=== PATIENT | male | born 1965 | race Caucasian/White ===

== ENCOUNTER → 2017-04-10 | Emergency (ER) | payer OTHER ==
[~2017-04-10] VITALS: Ht 185.4 cm; Wt 154.2 kg
[~2017-04-10] MED LIST: ADULT ASPIRIN81 MG; DEXILANT30 MG; DIOVAN160 M1; TOPROL XL100 M1; ULTRACET PO
== END | disposition home or self-care (01) ==
LOC: ER 13:57
DX: M54.16 Radiculopathy, lumbar region (principal); M54.5 Low back pain

== ENCOUNTER 2017-10-30 18:24 | Emergency (ER) | payer OTHER ==
[~2017-10-30] VITALS: Ht 185.4 cm; Wt 161.0 kg
== END 2017-10-31 00:19 | disposition home or self-care (01) ==
LOC: ER 18:24
DX: S40.011A Contusion of right shoulder, initial encounter (principal); S30.0XXA Contusion of lower back and pelvis, initial encounter; S00.83XA Contusion of other part of head, initial encounter; W18.39XA Other fall on same level, initial encounter; Y93.89 Activity, other specified; Y92.098 Other place in other non-institutional residence as the place of occurrence of the external cause; Y99.8 Other external cause status

== ENCOUNTER 2018-03-10 14:31 | Emergency (ER) | payer OTHER ==
[~2018-03-10] VITALS: Ht 185.4 cm; Wt 161.0 kg
[2018-03-10] MEDS ORDERED: COZAAR50 MG (14:45)
== END 2018-03-10 17:22 | disposition home or self-care (01) ==
LOC: ER 14:31
DX: J11.1 Influenza due to unidentified influenza virus with other respiratory manifestations (principal); J06.9 Acute upper respiratory infection, unspecified

== ENCOUNTER 2019-10-05 17:03 | Emergency (ER) | payer OTHER ==
[~2019-10-05] VITALS: Ht 185.4 cm; Wt 156.9 kg
[~2019-10-05 17:03] MED LIST changes: +COZAAR50 MG
[2019-10-05] MEDS ORDERED: JANUMET XR 1001 EACH (17:31)
[2019-10-05] MEDS ORDERED: PEPCID AC20 MG (17:32)
[2019-10-05] MEDS ORDERED: NEXIUM40 M1 (17:32)
== END 2019-10-05 21:34 | disposition home or self-care (01) ==
LOC: ER 17:03
DX: K52.89 Other specified noninfective gastroenteritis and colitis (principal)

== ENCOUNTER 2020-10-12 13:40 | Emergency (ER) | payer OTHER ==
[~2020-10-12] VITALS: Ht 185.4 cm; Wt 154.2 kg
[~2020-10-12 13:40] MED LIST changes: +JANUMET XR 1001 EACH; +NEXIUM40 M1; +PEPCID AC20 MG
[2020-10-12] MEDS ORDERED: ANALPRAM HC 2.530 GM RECTAL (20:40)
== END 2020-10-12 20:51 | disposition home or self-care (01) ==
LOC: ER 13:40
DX: R10.32 Left lower quadrant pain (principal); K62.5 Hemorrhage of anus and rectum

== ENCOUNTER 2020-12-24 09:05 | Outpatient (CLI) | payer OTHER ==
[~2020-12-24 09:05] MED LIST changes: +ANALPRAM HC 2.530 GM RECTAL
== END 2020-12-24 09:19 | disposition home or self-care (01) ==
LOC: RX STUDY 09:05
PROVIDERS: ATTEND Surgery
DX: R13.19 Other dysphagia (principal); K92.2 Gastrointestinal hemorrhage, unspecified; Z86.010 Personal history of colon polyps

== ENCOUNTER 2020-12-31 09:32 | Day surgery (SDC) | payer OTHER | END 2020-12-31 14:20 | disposition home or self-care (01) | LOC: AMB-ENDOS 09:32 | PROVIDERS: ATTEND Surgery | DX: D12.0 Benign neoplasm of cecum (principal); D12.4 Benign neoplasm of descending colon; D12.5 Benign neoplasm of sigmoid colon; D13.0 Benign neoplasm of esophagus; D13.1 Benign neoplasm of stomach; D13.2 Benign neoplasm of duodenum; Z20.822 Contact with and (suspected) exposure to COVID-19 ==

== ENCOUNTER 2021-03-08 17:50 | Emergency (ER) | payer OTHER ==
[~2021-03-08] VITALS: Ht 180.3 cm; Wt 157.9 kg
[2021-03-08] MEDS ORDERED: FARXIGA5 MG PO (18:48)
== END 2021-03-08 21:47 | disposition home or self-care (01) ==
LOC: ER 17:50
DX: E11.649 Type 2 diabetes mellitus with hypoglycemia without coma (principal); T38.3X5A Adverse effect of insulin and oral hypoglycemic [antidiabetic] drugs, initial encounter; Y92.89 Other specified places as the place of occurrence of the external cause; R42 Dizziness and giddiness; Z79.4 Long term (current) use of insulin; I10 Essential (primary) hypertension

== ENCOUNTER 2023-04-02 12:48 | Emergency (ER) | payer OTHER ==
[~2023-04-02] VITALS: Ht 182.9 cm; Wt 141.1 kg
[~2023-04-02 12:48] MED LIST changes: +FARXIGA5 MG PO
[2023-04-02] MEDS ORDERED: DIOVAN160 M1 PO (14:45)
[2023-04-02 18:18] LABS: HEMATOCRIT 40.7 % (39.0-48.0); HEMOGLOBIN 14.4 g/dL (13-16.00); MEAN CELL VOLUME 88.7 fL (80.0-100.00); MEAN CORPUSCULAR HEMOGLOBIN 31.5 pg (27.00-32.0); MEAN CORPUSCULAR HGB CONC 35.5 g/dl (32.0-36.0); PLATELET COUNT 235 K/uL (150-450); RED BLOOD COUNT 4.58 M/uL (4.00-6.00); RED CELL DISTRIBUTION WIDTH 12.8 % (11.5-14.5)
[2023-04-02 18:48] LABS: ALBUMIN 3.6 gm/dL (3.4-5.0); BILIRUBIN TOTAL 0.66 mg/dL (0.3-1.2); CALCIUM 8.8 mg/dL (8.5-10.1); CREATININE SERUM 0.86 mg/dL (0.70-1.30); GFR 91.34; GLOBULINA 4.4 G/DL (2.4-3.5); POTASSIUM 3.78 mEq/L (3.5-5.1)
[2023-04-02 20:52] LABS: PH,URINE 5.5 (5.0-8.0); URINE APPEARANCE Clear; URINE BILIRRUBIN Negative (NEGATIVE); URINE BLOOD Negative; URINE COLOR Yellow; URINE LEUKOCYTE Negative; URINE NITRATE Negative; URINE PROTEIN Negative (NEGATIVE); URINE UROBILINOGEN 0.2 E.U./dl
[2023-04-02 20:53] LABS: URINE BACTERIA 11.3 uL (0.0-1933); URINE WBC 15.7 uL (0.0-23.2)
[2023-04-02 20:56] LABS: URINE EPITHELIAL CELLS 1.3 uL (0.0-38.8); URINE GLUCOSE 100 MG/DL (NEGATIVE); URINE RBC 0.4 uL (0.0-20.8)
== END 2023-04-02 22:12 | disposition home or self-care (01) ==
LOC: ER 12:49
PROVIDERS: General Practice
DX: M54.9 Dorsalgia, unspecified (principal); Z88.8 Allergy status to other drugs, medicaments and biological substances

== ENCOUNTER 2024-01-16 13:05 | Emergency (ER) | payer OTHER ==
[~2024-01-16] VITALS: Ht 185.4 cm; Wt 137.4 kg
[~2024-01-16 13:05] MED LIST changes: +DIOVAN160 M1 PO
[2024-01-16] MEDS ORDERED: TAMS0.4C (13:24)
[2024-01-16 13:27] VITALS: BP 99/67; O2SAT 96
[2024-01-16] MEDS ORDERED: 0.9 % SODIUM CHLORIDE 500 ML IV ONE (15:00)
[2024-01-16] MEDS ORDERED: FAMOTIDINE/PF 20 MG/2 ML VIAL IV ONE (15:15)
[2024-01-16 15:46] LABS: HEMATOCRIT 43.5 % (39.0-48.0); HEMOGLOBIN 15.4 g/dL (13-16.00); MEAN CELL VOLUME 88.2 fL (80.0-100.00); MEAN CORPUSCULAR HEMOGLOBIN 31.1 pg (27.00-32.0); MEAN CORPUSCULAR HGB CONC 35.3 g/dl (32.0-36.0); PLATELET COUNT 221 K/uL (150-450); RED BLOOD COUNT 4.94 M/uL (4.00-6.00); RED CELL DISTRIBUTION WIDTH 12.9 % (11.5-14.5)
[2024-01-16 16:12] LABS: ALBUMIN 3.9 gm/dL (3.4-5.0); BILIRUBIN TOTAL 0.8 mg/dL (0.3-1.2); CALCIUM 9.3 mg/dL (8.5-10.1); CREATININE SERUM 0.98 mg/dL (0.70-1.30); GFR 78.28; GLOBULINA 4.9 G/DL (2.4-3.5); POTASSIUM 4.27 mEq/L (3.5-5.1); PROSTATIC SPECIFIC ANTIGEN 1.1 NG/ML (0.010-4.00); TOTAL PROTEIN 8.8 gm/dL (6.4-8.2)
[2024-01-16 16:39] LABS: PH,URINE 5.5 (5.0-8.0); URINE APPEARANCE Clear; URINE BILIRRUBIN Negative (NEGATIVE); URINE BLOOD Negative; URINE COLOR Dark Yellow; URINE GLUCOSE Negative (NEGATIVE); URINE KETONE Trace (NEGATIVE); URINE LEUKOCYTE Small; URINE NITRATE Negative; URINE PROTEIN 30 (NEGATIVE)
[2024-01-16 16:42] LABS: URINE BACTERIA 138.5 uL (0.0-1933); URINE EPITHELIAL CELLS 16.8 uL (0.0-38.8); URINE RBC 2.9 uL (0.0-20.8); URINE WBC 228.6 uL (0.0-23.2)
[2024-01-16 17:05] LABS: URINE CAST 0.76 uL (0.0-1.40)
[2024-01-16 17:06] LABS: URINE CRYSTALS FEW /HPF
[2024-01-16 17:07] LABS: URINE MUCUS MODERATE
[2024-01-16] MEDS ORDERED: CIPROFLOXACIN IN 5 % DEXTROSE 400 MG/200 ML PIGGYBAG IV ONE (17:45)
== END 2024-01-16 19:29 ==
LOC: ER 13:06
PROVIDERS: Nurse Practitioner Family
DX: N39.0 Urinary tract infection, site not specified (principal); B95.2 Enterococcus as the cause of diseases classified elsewhere; K57.30 Diverticulosis of large intestine without perforation or abscess without bleeding; K42.9 Umbilical hernia without obstruction or gangrene; K40.20 Bilateral inguinal hernia, without obstruction or gangrene, not specified as recurrent; E11.9 Type 2 diabetes mellitus without complications; Z79.84 Long term (current) use of oral hypoglycemic drugs; I10 Essential (primary) hypertension; Z88.8 Allergy status to other drugs, medicaments and biological substances; Z87.09 Personal history of other diseases of the respiratory system; Z20.822 Contact with and (suspected) exposure to COVID-19

== ENCOUNTER 2024-03-31 15:21 | Emergency (ER) | payer OTHER ==
[~2024-03-31] VITALS: Ht 182.9 cm; Wt 137.4 kg
[~2024-03-31 15:21] MED LIST changes: +TAMS0.4C
[2024-03-31] MEDS ORDERED: TAMS0.4C PO (15:42)
[2024-03-31] MEDS ORDERED: METHYLPREDNISOLONE SOD SUCC 125 MG VIAL ONE (16:41)
[2024-03-31] MEDS ORDERED: LEVALBUTEROL HCL 0.63 MG/3 ML SOLUTION IH SCH (16:45)
[2024-03-31] MEDS ORDERED: METHYLPREDNISOLONE SOD SUCC 125 MG VIAL IV ONE (16:45)
[2024-03-31] MEDS ORDERED: LEVALBUTEROL HCL 0.63 MG/3 ML SOLUTION IH ONE (17:37)
[2024-03-31 17:44] LABS: HEMATOCRIT 41.1 % (39.0-48.0); HEMOGLOBIN 14.3 g/dL (13-16.00); MEAN CELL VOLUME 88.7 fL (80.0-100.00); MEAN CORPUSCULAR HEMOGLOBIN 30.8 pg (27.00-32.0); MEAN CORPUSCULAR HGB CONC 34.8 g/dl (32.0-36.0); PLATELET COUNT 168 K/uL (150-450); RED BLOOD COUNT 4.64 M/uL (4.00-6.00)
[2024-03-31 17:57] LABS: ABG PH 7.477 (7.35-7.45); ABG PO2 71.3 mmHg (80-100); ABG pCO2 31.2 mmHg (35-45); BASE EXCESS 0 mmol/l; BICARBONATE 22.6 mmol/l (23-25); SaO2 95.3 %; Tco2 23.5 mmol/l; allen test SATISFACTORY; puncture site RADIAL RIGHT
[2024-03-31 17:58] LABS: o2 21 %
[2024-03-31] MEDS ORDERED: CEFTRIAXONE SODIUM 2,000 MG VIAL IV ONE (19:00)
[2024-03-31] MEDS ORDERED: CEFTRIAXONE SODIUM 2,000 MG VIAL ONE (19:01)
== END 2024-03-31 19:43 | disposition home or self-care (01) ==
LOC: ER 15:21
PROVIDERS: Emergency Medicine
DX: J22 Unspecified acute lower respiratory infection (principal); J44.1 Chronic obstructive pulmonary disease with (acute) exacerbation; J45.909 Unspecified asthma, uncomplicated; I10 Essential (primary) hypertension; Z20.822 Contact with and (suspected) exposure to COVID-19

== ENCOUNTER 2024-04-02 12:42 | Inpatient (IN) | payer OTHER ==
[~2024-04-02] VITALS: Ht 182.9 cm; Wt 136.1 kg
[~2024-04-02 12:42] MED LIST changes: +TAMS0.4C PO
--- NOTE | 2024-04-02 14:10 | NUR ---
PACIENTE ALERTA Y ORIENTADO X 3, ACOMPANADO DE FAMILIAR. REFIERE DESDE EL RHINA TOS, CONGESTION Y SECRESIONES TEODORA QUE LE DIFICULTAN RESPIRAR. PACIENTE CON REFERIDO DE DR THEODORE POR POSIBLE BRONQUITIS.
[2024-04-02] MEDS ORDERED: LEVOFLOXACIN500 MG PO (14:16)
[2024-04-02] MEDS ORDERED: PROAIR RESPICL90 MCG (14:17)
[2024-04-02] MEDS ORDERED: LEVALBUTEROL HCL 1.25 MG/3 ML SOLUTION IH STA (15:07)
[2024-04-02] MEDS ORDERED: MAGNESIUM SULFATE IN WATER 4 GM/100 ML PIGGYBACK IV STA (15:08)
[2024-04-02] MEDS ORDERED: HYDROCODONE/CHLORPHEN P-STIREX 5 ML ML PO STA (15:08)
[2024-04-02] MEDS ORDERED: METHYLPREDNISOLONE SOD SUCC 125 MG VIAL IV STA (15:08)
[2024-04-02] MEDS ORDERED: IPRATROPIUM BROMIDE 0.5 MG/2.5 ML AMPUL.NEB IH STA (15:12)
--- NOTE | 2024-04-02 15:37 | NUR ---
PTE ALERTA Y ORIENTADO X3, RN ASHRAF ORIENTA SOBRE TX MEDICO Y REFIERE ACEPTAR. CANALIZA Y COELCTA MUESTRAS DE LAB BAJO MEDIDAS ASEPTICAS. ADMINISTRA MEDS JENARO ORDEN MEDICA. SE NOTIFICAN ABG A .
[2024-04-02] MEDS ORDERED: METHYLPREDNISOLONE SOD SUCC 125 MG VIAL ONE (15:39)
[2024-04-02] MEDS ORDERED: BUDESONIDE 0.5 MG/2 ML AMPUL.NEB IH STA (15:53)
[2024-04-02] MEDS ORDERED: LEVALBUTEROL HCL 1.25 MG/3 ML SOLUTION IH ONE (16:01)
[2024-04-02 16:02] LABS: HEMATOCRIT 43.9 % (39.0-48.0); HEMOGLOBIN 15.4 g/dL (13-16.00); MEAN CELL VOLUME 88.8 fL (80.0-100.00); MEAN CORPUSCULAR HGB CONC 34.9 g/dl (32.0-36.0); PLATELET COUNT 219 K/uL (150-450); RED BLOOD COUNT 4.95 M/uL (4.00-6.00)
[2024-04-02] MEDS ORDERED: IPRATROPIUM BROMIDE 0.5 MG/2.5 ML AMPUL.NEB IH ONE (16:02)
[2024-04-02] MEDS ORDERED: BUDESONIDE 0.5 MG/2 ML AMPUL.NEB IH ONE (16:02)
[2024-04-02 16:25] LABS: CALCIUM 9.6 mg/dL (8.5-10.1); CREATININE SERUM 1.15 mg/dL (0.70-1.30); GFR 65.09; POTASSIUM 4.09 mEq/L (3.5-5.1)
[2024-04-02] MEDS ORDERED: LEVALBUTEROL HCL 1.25 MG/3 ML SOLUTION IH SCH (17:08)
[2024-04-02] MEDS ORDERED: AZITHROMYCIN 500 MG in DEXTROSE 5 % IN WATER 250 ML IV SCH (17:09)
[2024-04-02] MEDS ORDERED: CEFTRIAXONE SODIUM 2,000 MG in 0.9 % SODIUM CHLORIDE 100 ML IV SCH (17:10)
[2024-04-02] MEDS ORDERED: ACETAMINOPHEN 500 MG GEL..CAP PO PRN (17:15)
[2024-04-02] MEDS ORDERED: DEXTROSE 50 % IN WATER 0.5 G/ML DISP.SYRIN IV PRN (17:30)
[2024-04-02] MEDS ORDERED: INSULIN LISPRO 1,000 UNIT/10 ML UNITS SUBCUTANEO PRN (17:30)
[2024-04-02] MEDS ORDERED: AMIODARONE HCL 50 MG/ML AMPUL IV ONE ×2 (17:42→18:00)
[2024-04-02] MEDS ORDERED: METHYLPREDNISOLONE SOD SUCC 40 MG VIAL IV SCH ×2 (18:00→21:00)
[2024-04-02] MEDS ORDERED: APIXABAN 5 MG TABLET PO SCH (18:08)
[2024-04-02] MEDS ORDERED: AZITHROMYCIN 500 MG VIAL IV ONE (18:26)
[2024-04-02] MEDS ORDERED: CEFTRIAXONE SODIUM 2,000 MG VIAL ONE (18:26)
[2024-04-02 18:27] LABS: URINE APPEARANCE Clear; URINE BILIRRUBIN Negative (NEGATIVE); URINE BLOOD Negative; URINE COLOR Yellow; URINE GLUCOSE Negative (NEGATIVE); URINE KETONE Trace (NEGATIVE); URINE LEUKOCYTE Negative; URINE NITRATE Negative; URINE PROTEIN Trace (NEGATIVE); URINE UROBILINOGEN 0.2 E.U./dl
[2024-04-02 18:27] LABS: D DIMER 0.36 MG/L; PARTIAL THROMBOPLASTIN TIME 26.7 SECONDS (22.0-34.0)
[2024-04-02] MEDS ORDERED: 0.9 % SODIUM CHLORIDE 1,000 ML IV SCH (18:30)
[2024-04-02 18:31] LABS: URINE BACTERIA 26.9 uL (0.0-1933); URINE EPITHELIAL CELLS 2.5 uL (0.0-38.8); URINE WBC 6.6 uL (0.0-23.2)
[2024-04-02 18:34] LABS: URINE CAST 0.29 uL (0.0-1.40); URINE RBC 1.1 uL (0.0-20.8)
[2024-04-02 19:00] VITALS: BP 117/78; O2SAT 98
[2024-04-02 19:11] LABS: INR 1.12; PROTHROMBIN TIME 12.1 SECONDS (9.0-11.5)
[2024-04-02 19:19] LABS: ABG PH 7.517 (7.35-7.45); ABG pCO2 24.8 mmHg (35-45); BASE EXCESS -1.4 mmol/l; BICARBONATE 19.6 mmol/l (23-25); SaO2 96.9 %; Tco2 20.4 mmol/l; allen test SATISFACTORY; o2 21 %; puncture site RADIAL LEFT
[2024-04-02] MEDS ORDERED: ACETAMINOPHEN 500 MG GEL..CAP PO ONE (19:21)
[2024-04-02 20:03] VITALS: BP 113/75; O2SAT 99
[2024-04-02 21:00] VITALS: BP 100/76; O2SAT 98
[2024-04-02] MEDS ORDERED: GUAIFEN/DEXTROMETHORPHAN/PE 10 ML BLIST.PACK PO SCH (21:00)
[2024-04-02] MEDS ORDERED: IPRATROPIUM BROMIDE 0.5 MG/2.5 ML AMPUL.NEB IH SCH (21:00)
[2024-04-02] MEDS ORDERED: METHYLPREDNISOLONE SOD SUCC 40 MG VIAL ONE ×2 (21:48→23:45)
[2024-04-02] MEDS ORDERED: GUAIFEN/DEXTROMETHORPHAN/PE 10 ML BLIST.PACK PO ONE ×2 (21:48→23:45)
[2024-04-02] MEDS ORDERED: WATER FOR INJ.,BACTERIOSTATIC 30 ML VIAL IJ ONE (21:54)
[2024-04-02 22:00] VITALS: BP 114/82; O2SAT 99
[2024-04-02 22:36] LABS: ABG PH 7.503 (7.35-7.45)
[2024-04-02 22:37] LABS: ABG PO2 221.6 mmHg (80-100); ABG pCO2 25.3 mmHg (35-45); BASE EXCESS -1.9 mmol/l; BICARBONATE 19.4 mmol/l (23-25); SaO2 99.8 %; Tco2 20.2 mmol/l; allen test SATISFACTORY; o2 35 %; puncture site RADIAL LEFT
[2024-04-02 23:00] VITALS: BP 108/80; O2SAT 98
[2024-04-02] MEDS ORDERED: AMIODARONE IN DEXTROSE,ISO-OSM 360 MG/200 ML IV.SOLN IV ONE (23:46)
[2024-04-03] VITALS (17 sets, daily range): BP systolic 90–118; BP diastolic 67–96; O2SAT 95–99
[2024-04-03] MEDS ORDERED: INSULIN LISPRO 1,000 UNIT/10 ML UNITS SUBCUTANEO ONE ×6 (01:52→21:45)
[2024-04-03] MEDS ORDERED: IPRATROPIUM BROMIDE 0.5 MG/2.5 ML AMPUL.NEB IH ONE ×3 (01:59→10:38)
[2024-04-03] MEDS ORDERED: LEVALBUTEROL HCL 0.63 MG/3 ML SOLUTION IH ONE (02:00)
[2024-04-03 03:47] LABS: ABG PH 7.405 (7.35-7.45); ABG PO2 120.3 mmHg (80-100); ABG pCO2 35.2 mmHg (35-45); BASE EXCESS -2.5 mmol/l; BICARBONATE 21.6 mmol/l (23-25); SaO2 98.6 %; Tco2 22.6 mmol/l; allen test SATISFACTORY; o2 35 %; puncture site RADIAL RIGHT
[2024-04-03 07:18] LABS: CALCIUM 8.8 mg/dL (8.5-10.1); CREATININE SERUM 0.95 mg/dL (0.70-1.30); GFR 81.14; POTASSIUM 4.43 mEq/L (3.5-5.1); T4 TOTAL 11.53 UG/DL (4.5-12.1); TSH 0.535 uIU/mL (0.358-3.74)
[2024-04-03] MEDS ORDERED: INSULIN LISPRO 1,000 UNIT/10 ML UNITS SUBCUTANEO SCH (08:00)
[2024-04-03] MEDS ORDERED: DILTIAZEM HCL 30 MG TABLET PO SCH ×2 (09:00→17:00)
[2024-04-03] MEDS ORDERED: FAMOTIDINE/PF 20 MG in 0.9 % SODIUM CHLORIDE 8 ML IV PUSH SCH (09:00)
[2024-04-03] MEDS ORDERED: INSULIN GLARGINE,HUM.REC.ANLOG 1,000 UNITS/10 ML UNITS SUBCUTANEO SCH ×2 (09:00→17:01)
[2024-04-03] MEDS ORDERED: INSULIN GLARGINE,HUM.REC.ANLOG 1,000 UNITS/10 ML UNITS SUBCUTANEO ONE ×2 (10:56→16:30)
[2024-04-03] MEDS ORDERED: FUROsemide 20 MG/2 ML VIAL IV SCH (11:23)
[2024-04-03] MEDS ORDERED: FUROsemide 20 MG/2 ML VIAL ONE (11:32)
[2024-04-03] MEDS ORDERED: METHYLPREDNISOLONE SOD SUCC 40 MG VIAL IV SCH (13:00)
[2024-04-03] MEDS ORDERED: INSULIN REGULAR, HUMAN 1,000 UNIT/10 ML UNITS IV STA (14:51)
[2024-04-03] MEDS ORDERED: INSULIN LISPRO 1,000 UNIT/10 ML UNITS SUBCUTANEO STA (14:52)
[2024-04-03 15:05] LABS: MYCOPLASMA PNEUMONIAE IGM REACTIVE (NO REACTIVE)
[2024-04-03] MEDS ORDERED: INSULIN REGULAR, HUMAN 1,000 UNIT/10 ML UNITS ONE (16:28)
[2024-04-03] MEDS ORDERED: INSULIN REGULAR, HUMAN 1,000 UNIT/10 ML UNITS IV ONE (17:00)
[2024-04-03] MEDS ORDERED: METHYLPREDNISOLONE SOD SUCC 40 MG VIAL ONE (21:34)
[2024-04-03] MEDS ORDERED: DIGOXIN 0.25 MG/ML AMPUL IV SCH (21:53)
[2024-04-03] MEDS ORDERED: DIGOXIN 0.125 MG TABLET PO ONE (22:20)
[2024-04-04] VITALS (15 sets, daily range): BP systolic 99–140; BP diastolic 68–99; O2SAT 97–100
[2024-04-04] MEDS ORDERED: FAMOTIDINE/PF 20 MG/2 ML VIAL IV PUSH STA (01:16)
[2024-04-04] MEDS ORDERED: FAMOTIDINE/PF 20 MG/2 ML VIAL IV PUSH SCH (01:17)
[2024-04-04] MEDS ORDERED: HYOSCYAMINE SULFATE 0.125 MG TAB.SUBL ONE (06:42)
[2024-04-04 07:04] LABS: HEMATOCRIT 40.6 % (39.0-48.0); HEMOGLOBIN 14.5 g/dL (13-16.00); MEAN CELL VOLUME 87.1 fL (80.0-100.00); MEAN CORPUSCULAR HGB CONC 35.6 g/dl (32.0-36.0); PLATELET COUNT 226 K/uL (150-450); RED BLOOD COUNT 4.66 M/uL (4.00-6.00); RED CELL DISTRIBUTION WIDTH 13.1 % (11.5-14.5)
[2024-04-04 07:11] LABS: ALBUMIN 3.2 gm/dL (3.4-5.0); BILIRUBIN TOTAL 0.46 mg/dL (0.3-1.2); CALCIUM 8.7 mg/dL (8.5-10.1); CREATININE SERUM 0.75 mg/dL (0.70-1.30); GFR 106.59; GLOBULINA 4.5 G/DL (2.4-3.5); MAGNESIUM 2.2 mg/dL (1.8-2.4); PHOSPHOROUS 4.3 mg/dL (2.5-4.9); POTASSIUM 4.07 mEq/L (3.5-5.1); TOTAL PROTEIN 7.7 gm/dL (6.4-8.2)
[2024-04-04 07:12] LABS: C-REACTIVE PROTEIN 1.93 MG/DL (0.00-0.29)
[2024-04-04] MEDS ORDERED: INSULIN LISPRO 1,000 UNIT/10 ML UNITS SUBCUTANEO SCH (08:00)
[2024-04-04] MEDS ORDERED: IPRATROPIUM BROMIDE 0.5 MG/2.5 ML AMPUL.NEB IH ONE (08:40)
[2024-04-04] MEDS ORDERED: INSULIN GLARGINE,HUM.REC.ANLOG 1,000 UNITS/10 ML UNITS SUBCUTANEO SCH (09:00)
[2024-04-04] MEDS ORDERED: INSULIN LISPRO 1,000 UNIT/10 ML UNITS SUBCUTANEO ONE ×3 (09:16→23:34)
[2024-04-04] MEDS ORDERED: FAMOTIDINE/PF 20 MG/2 ML VIAL ONE (09:17)
[2024-04-04] MEDS ORDERED: METHYLPREDNISOLONE SOD SUCC 40 MG VIAL ONE ×2 (12:17→19:36)
[2024-04-04] MEDS ORDERED: GUAIFEN/DEXTROMETHORPHAN/PE 10 ML BLIST.PACK PO ONE (12:17)
[2024-04-04] MEDS ORDERED: WATER FOR INJ.,BACTERIOSTATIC 30 ML VIAL IJ ONE (12:18)
[2024-04-04] MEDS ORDERED: METRONIDAZOLE/SODIUM CHLORIDE 100 ML IV SCH (17:00)
[2024-04-04] MEDS ORDERED: LACTOBACILLUS ACIDOPHILUS 1 CAP CAP PO SCH (17:52)
[2024-04-04] MEDS ORDERED: LACTOBACILLUS ACIDOPHILUS 1 CAP CAP PO ONE (19:36)
[2024-04-04] MEDS ORDERED: DIGOXIN 0.125 MG TABLET PO SCH (21:56)
[2024-04-04] MEDS ORDERED: METRONIDAZOLE/SODIUM CHLORIDE 500 MG/100 ML PIGGYBACK IV ONE (23:34)
[2024-04-04] MEDS ORDERED: DILTIAZEM HCL 30 MG TABLET PO ONE (23:34)
[2024-04-05] VITALS (18 sets, daily range): BP systolic 105–144; BP diastolic 68–94; O2SAT 94–100
[2024-04-05] MEDS ORDERED: GUAIFEN/DEXTROMETHORPHAN/PE 10 ML BLIST.PACK PO ONE (00:13)
[2024-04-05] MEDS ORDERED: DILTIAZEM HCL 30 MG TABLET PO SCH (01:00)
[2024-04-05] MEDS ORDERED: WATER FOR INJ.,BACTERIOSTATIC 30 ML VIAL IJ ONE (05:10)
[2024-04-05] MEDS ORDERED: IPRATROPIUM BROMIDE 0.5 MG/2.5 ML AMPUL.NEB IH ONE (08:56)
[2024-04-05] MEDS ORDERED: DIGOXIN 0.125 MG TABLET PO SCH (09:00)
[2024-04-05] MEDS ORDERED: AMIODARONE HCL 200 MG TABLET PO SCH (09:00)
[2024-04-05] MEDS ORDERED: DILTIAZEM HCL 60 MG TABLET PO SCH (09:00)
[2024-04-05] MEDS ORDERED: INSULIN LISPRO 1,000 UNIT/10 ML UNITS SUBCUTANEO ONE ×2 (09:25→12:22)
[2024-04-05] MEDS ORDERED: INSULIN GLARGINE,HUM.REC.ANLOG 1,000 UNITS/10 ML UNITS SUBCUTANEO ONE (09:26)
[2024-04-05] MEDS ORDERED: FAMOtidine 20 MG TABLET PO SCH (17:00)
[2024-04-06] VITALS (10 sets, daily range): BP systolic 137–160; BP diastolic 82–87; O2SAT 94–99
[2024-04-06] MEDS ORDERED: SODIUM CHLORIDE FOR INHALATION 1 VIAL.NEB IH SCH (17:00)
[2024-04-07] VITALS (9 sets, daily range): BP systolic 124–155; BP diastolic 90–98; O2SAT 95–99
[2024-04-07] MEDS ORDERED: AZITHROMYCIN 500 MG VIAL IV ONE (07:57)
[2024-04-07] MEDS ORDERED: AZITHROMYCIN 500 MG VIAL IV SCH (09:00)
[2024-04-07] MEDS ORDERED: METHYLPREDNISOLONE SOD SUCC 40 MG VIAL IV SCH (09:00)
[2024-04-07] MEDS ORDERED: LACTOBACILLUS ACIDOPHILUS 1 CAP CAP PO SCH (17:00)
[2024-04-08 01:48] VITALS: BP 144/84; O2SAT 96
[2024-04-08 02:05] VITALS: O2SAT 100
[2024-04-08] MEDS ORDERED: AZITHROMYCIN 500 MG VIAL IV ONE (08:13)
[2024-04-08 08:40] VITALS: BP 155/99
[2024-04-08] MEDS ORDERED: METROnidazole 500 MG TABLET PO SCH (17:00)
[2024-04-08] MEDS ORDERED: DILTIAZEM HCL 90 MG TABLET PO SCH (17:00)
[2024-04-08 18:17] VITALS: BP 164/98
[2024-04-08 20:24] VITALS: O2SAT 95
[2024-04-09] VITALS (9 sets, daily range): BP systolic 139–182; BP diastolic 85–94; O2SAT 96–100
[2024-04-09 08:38] LABS: HEMATOCRIT 46.3 % (39.0-48.0); HEMOGLOBIN 16.1 g/dL (13-16.00); MEAN CELL VOLUME 87.2 fL (80.0-100.00); MEAN CORPUSCULAR HEMOGLOBIN 30.4 pg (27.00-32.0); MEAN CORPUSCULAR HGB CONC 34.8 g/dl (32.0-36.0); PLATELET COUNT 336 K/uL (150-450); RED BLOOD COUNT 5.31 M/uL (4.00-6.00); RED CELL DISTRIBUTION WIDTH 13.4 % (11.5-14.5)
[2024-04-09] MEDS ORDERED: FAMOtidine 20 MG TABLET PO SCH (09:00)
[2024-04-09 09:09] LABS: ALBUMIN 3.1 gm/dL (3.4-5.0); BILIRUBIN TOTAL 0.98 mg/dL (0.3-1.2); CALCIUM 8.3 mg/dL (8.5-10.1); CREATININE SERUM 0.86 mg/dL (0.70-1.30); GFR 91.02; GLOBULINA 3.9 G/DL (2.4-3.5); MAGNESIUM 2.2 mg/dL (1.8-2.4); POTASSIUM 4.03 mEq/L (3.5-5.1)
[2024-04-09 09:20] LABS: C-REACTIVE PROTEIN 0.34 MG/DL (0.00-0.29)
[2024-04-10] VITALS (8 sets, daily range): BP systolic 138–149; BP diastolic 85–100; O2SAT 96–99
[2024-04-10] MEDS ORDERED: CEFTRIAXONE SODIUM 2,000 MG VIAL ONE (08:27)
[2024-04-10 09:32] LABS: HEMATOCRIT 42.9 % (39.0-48.0); MEAN CORPUSCULAR HEMOGLOBIN 30.3 pg (27.00-32.0); MEAN CORPUSCULAR HGB CONC 34.8 g/dl (32.0-36.0); PLATELET COUNT 275 K/uL (150-450); RED BLOOD COUNT 4.93 M/uL (4.00-6.00)
[2024-04-10] MEDS ORDERED: DIATRIZOATE MEGLUMINE, SODIUM 30 ML BOTTLE PO ONE (13:30)
[2024-04-10] MEDS ORDERED: MEPERIDINE HCL/PF 25 MG/ML VIAL IV STA (20:55)
[2024-04-10] MEDS ORDERED: INSULIN GLARGINE,HUM.REC.ANLOG 1,000 UNITS/10 ML UNITS SUBCUTANEO SCH (21:00)
[2024-04-10] MEDS ORDERED: SODIUM CHLORIDE FOR INHALATION 1 VIAL.NEB IH SCH (21:00)
[2024-04-10] MEDS ORDERED: FAMOtidine 20 MG TABLET PO SCH (21:00)
[2024-04-10] MEDS ORDERED: FAMOtidine 20 MG TABLET PO ONE (22:22)
[2024-04-11] VITALS (9 sets, daily range): BP systolic 137–150; BP diastolic 81–93; O2SAT 95–99
[2024-04-11 05:38] LABS: HEMOGLOBIN 15.1 g/dL (13-16.00); MEAN CELL VOLUME 86.8 fL (80.0-100.00); MEAN CORPUSCULAR HEMOGLOBIN 30.4 pg (27.00-32.0); PLATELET COUNT 281 K/uL (150-450); RED BLOOD COUNT 4.96 M/uL (4.00-6.00); RED CELL DISTRIBUTION WIDTH 13.1 % (11.5-14.5)
[2024-04-11 06:38] LABS: BILIRUBIN TOTAL 0.77 mg/dL (0.3-1.2); CALCIUM 8.1 mg/dL (8.5-10.1); CREATININE SERUM 0.81 mg/dL (0.70-1.30); GFR 97.53; GLOBULINA 3.5 G/DL (2.4-3.5); PHOSPHOROUS 2.5 mg/dL (2.5-4.9); POTASSIUM 3.66 mEq/L (3.5-5.1); TOTAL PROTEIN 6.5 gm/dL (6.4-8.2)
[2024-04-11] MEDS ORDERED: CEFTRIAXONE SODIUM 2,000 MG VIAL ONE (08:04)
[2024-04-11 10:44] LABS: PH,URINE 6.5 (5.0-8.0); URINE APPEARANCE Clear; URINE BILIRRUBIN Negative (NEGATIVE); URINE BLOOD NHT; URINE COLOR Yellow; URINE KETONE Negative (NEGATIVE); URINE LEUKOCYTE Trace; URINE NITRATE Negative; URINE PROTEIN Trace (NEGATIVE); URINE UROBILINOGEN 0.2 E.U./dl
[2024-04-11 11:01] LABS: URINE BACTERIA 7.3 uL (0.0-1933); URINE CAST 0.14 uL (0.0-1.40); URINE EPITHELIAL CELLS 3.7 uL (0.0-38.8); URINE GLUCOSE 250 MG/DL (NEGATIVE); URINE RBC 37.4 uL (0.0-20.8); URINE WBC 12.5 uL (0.0-23.2)
[2024-04-12] VITALS (9 sets, daily range): BP systolic 120–150; BP diastolic 82–87; O2SAT 93–100
[2024-04-12 06:19] LABS: HEMATOCRIT 38.3 % (39.0-48.0); HEMOGLOBIN 13.7 g/dL (13-16.00); MEAN CELL VOLUME 86.5 fL (80.0-100.00); MEAN CORPUSCULAR HEMOGLOBIN 30.9 pg (27.00-32.0); MEAN CORPUSCULAR HGB CONC 35.8 g/dl (32.0-36.0); PLATELET COUNT 225 K/uL (150-450); RED BLOOD COUNT 4.43 M/uL (4.00-6.00); RED CELL DISTRIBUTION WIDTH 13.2 % (11.5-14.5)
[2024-04-12 09:51] LABS: PLATELET ESTIMATE NORMAL (NORMAL)
[2024-04-12] MEDS ORDERED: VANCOMYCIN HCL 125 MG/7.5 ML BLIST.PACK PO SCH (18:00)
[2024-04-12 22:35] LABS: ABG PH 7.496 (7.35-7.45); ABG PO2 81.9 mmHg (80-100); BASE EXCESS 2.6 mmol/l; BICARBONATE 25.2 mmol/l (23-25); SaO2 97.1 %; Tco2 26.3 mmol/l; allen test SATISFACTORY; o2 21 %; puncture site RADIAL LEFT
[2024-04-12 22:36] LABS: ABG pCO2 33.4 mmHg (35-45)
[2024-04-13 01:23] VITALS: O2SAT 96
[2024-04-13 02:05] VITALS: BP 154/81; O2SAT 99
[2024-04-13 05:00] VITALS: O2SAT 97
[2024-04-13 09:42] LABS: ALBUMIN 2.7 gm/dL (3.4-5.0); BILIRUBIN TOTAL 0.52 mg/dL (0.3-1.2); CALCIUM 8.4 mg/dL (8.5-10.1); CREATININE SERUM 0.75 mg/dL (0.70-1.30); GFR 106.59; POTASSIUM 3.6 mEq/L (3.5-5.1); TOTAL PROTEIN 5.7 gm/dL (6.4-8.2)
[2024-04-13 09:43] VITALS: BP 136/87; O2SAT 98
[2024-04-13 10:40] LABS: HEMOGLOBIN 13.5 g/dL (13-16.00); MEAN CELL VOLUME 86.7 fL (80.0-100.00); MEAN CORPUSCULAR HEMOGLOBIN 30.9 pg (27.00-32.0); MEAN CORPUSCULAR HGB CONC 35.6 g/dl (32.0-36.0); PLATELET COUNT 213 K/uL (150-450); RED BLOOD COUNT 4.38 M/uL (4.00-6.00); RED CELL DISTRIBUTION WIDTH 13.1 % (11.5-14.5)
[2024-04-13 14:18] VITALS: O2SAT 96
== END 2024-04-13 15:59 | disposition home or self-care (01) | DRG 308 ==
LOC: ER 12:44 → ICU-2 20:22 → MEDJ 20:22
PROVIDERS: General Practice; Internal Medicine; Internal Medicine Infectious Disease; Student in an Organized Health Care Education/Training Program; ADMIT Internal Medicine; ATTEND Internal Medicine
PROC: BW21YZZ Computerized Tomography (CT Scan) of Abdomen and Pelvis using Other Contrast (ICD-10-PCS; principal; 2024-04-02)
PROC: B246ZZZ Ultrasonography of Right and Left Heart (ICD-10-PCS; 2024-04-02)
PROC: 3E0F7GC Introduction of Other Therapeutic Substance into Respiratory Tract, Via Natural or Artificial Opening (ICD-10-PCS; 2024-04-03)
PROC: 4A12X4Z Monitoring of Cardiac Electrical Activity, External Approach (ICD-10-PCS; 2024-04-05)
PROC: B246ZZZ Ultrasonography of Right and Left Heart (ICD-10-PCS; 2024-04-08)
PROC: BW21YZZ Computerized Tomography (CT Scan) of Abdomen and Pelvis using Other Contrast (ICD-10-PCS; 2024-04-10)
DX: I48.20 Chronic atrial fibrillation, unspecified (principal); J18.9 Pneumonia, unspecified organism; J45.41 Moderate persistent asthma with (acute) exacerbation; Z68.41 Body mass index [BMI] 40.0-44.9, adult; E66.01 Morbid (severe) obesity due to excess calories; E11.9 Type 2 diabetes mellitus without complications; Z79.4 Long term (current) use of insulin; E78.49 Other hyperlipidemia; I11.0 Hypertensive heart disease with heart failure; I50.9 Heart failure, unspecified; R09.02 Hypoxemia

== ENCOUNTER 2024-04-21 23:27 | Inpatient (IN) | payer OTHER ==
[~2024-04-21] VITALS: Ht 165.1 cm; Wt 131.5 kg
[~2024-04-21 23:27] MED LIST changes: +LEVOFLOXACIN500 MG PO; +PROAIR RESPICL90 MCG
[2024-04-21] MEDS ORDERED: ELIQUIS5 MG PO (23:52)
[2024-04-21] MEDS ORDERED: AMIODARONE HCL400 MG PO (23:52)
[2024-04-21] MEDS ORDERED: LANOXIN125 MCG PO (23:53)
[2024-04-21] MEDS ORDERED: CARDIZEM30 MG (23:53)
[2024-04-21] MEDS ORDERED: ABATINEX680 MG PO (23:54)
[2024-04-21] MEDS ORDERED: CARAFATE1 GM PO (23:54)
[2024-04-21] MEDS ORDERED: EZALLOR SPRINKL20 MG PO (23:55)
[2024-04-21] MEDS ORDERED: PROTONIX40 M1 PO (23:55)
[2024-04-22] MEDS ORDERED: HYOSCYAMINE SULFATE 0.125 MG TAB.SUBL SL STA (00:41)
[2024-04-22] MEDS ORDERED: FAMOTIDINE/PF 20 MG/2 ML VIAL IV PUSH STA (00:42)
[2024-04-22] MEDS ORDERED: LACTOBACILLUS ACIDOPHILUS 1 CAP CAP PO STA (00:42)
[2024-04-22] MEDS ORDERED: POTASSIUM CHLORIDE/NACL 0.9% 1,000 ML IV ONE (00:45)
[2024-04-22] MEDS ORDERED: POTASSIUM CHLORIDE/NACL 0.9% 20 MEQ/1,000 ML PIGGYBAG IV ONE (01:17)
[2024-04-22] MEDS ORDERED: HYOSCYAMINE SULFATE 0.125 MG TAB.SUBL ONE (01:17)
[2024-04-22] MEDS ORDERED: LACTOBACILLUS ACIDOPHILUS 1 CAP CAP PO ONE (01:18)
[2024-04-22] MEDS ORDERED: FAMOTIDINE/PF 20 MG/2 ML VIAL ONE (01:18)
[2024-04-22 02:23] LABS: HEMOGLOBIN 13.1 g/dL (13-16.00); MEAN CORPUSCULAR HEMOGLOBIN 30.8 pg (27.00-32.0); MEAN CORPUSCULAR HGB CONC 35.4 g/dl (32.0-36.0); PLATELET COUNT 195 K/uL (150-450); RED BLOOD COUNT 4.25 M/uL (4.00-6.00)
[2024-04-22 02:41] LABS: ALBUMIN 3.3 gm/dL (3.4-5.0); BILIRUBIN TOTAL 0.6 mg/dL (0.3-1.2); CALCIUM 9.6 mg/dL (8.5-10.1); CREATININE SERUM 0.85 mg/dL (0.70-1.30); GFR 92.26; GLOBULINA 3.6 G/DL (2.4-3.5); POTASSIUM 3.8 mEq/L (3.5-5.1); TOTAL PROTEIN 6.9 gm/dL (6.4-8.2)
[2024-04-22 04:24] LABS: URINE APPEARANCE Clear; URINE BILIRRUBIN Negative (NEGATIVE); URINE BLOOD Negative; URINE COLOR Yellow; URINE GLUCOSE Negative (NEGATIVE); URINE KETONE Negative (NEGATIVE); URINE LEUKOCYTE Negative; URINE NITRATE Negative; URINE PROTEIN Negative (NEGATIVE); URINE UROBILINOGEN 0.2 E.U./dl
[2024-04-22 04:29] LABS: URINE BACTERIA 12.2 uL (0.0-1933); URINE EPITHELIAL CELLS 5.3 uL (0.0-38.8); URINE RBC 2.5 uL (0.0-20.8); URINE WBC 6.9 uL (0.0-23.2)
[2024-04-22 04:45] LABS: URINE CAST 1.32 uL (0.0-1.40); URINE CRYSTALS MANY /HPF
[2024-04-22] MEDS ORDERED: CIPROFLOXACIN IN 5 % DEXTROSE 400 MG/200 ML PIGGYBAG IV STA (07:58)
[2024-04-22] MEDS ORDERED: CIPROFLOXACIN IN 5 % DEXTROSE 400 MG/200 ML PIGGYBAG IV ONE (08:00)
[2024-04-22] MEDS ORDERED: FAMOTIDINE/PF 20 MG in 0.9 % SODIUM CHLORIDE 8 ML IV PUSH SCH (09:00)
[2024-04-22] MEDS ORDERED: METRONIDAZOLE/SODIUM CHLORIDE 100 ML IV SCH (11:40)
[2024-04-22] MEDS ORDERED: CIPROFLOXACIN IN 5 % DEXTROSE 200 ML IV SCH (11:40)
[2024-04-22] MEDS ORDERED: ONDANSETRON HCL 4 MG in 0.9 % SODIUM CHLORIDE 50 ML IV PRN (11:45)
[2024-04-22] MEDS ORDERED: 0.9 % SODIUM CHLORIDE 1,000 ML IV SCH (11:45)
[2024-04-22] MEDS ORDERED: INSULIN LISPRO 1,000 UNIT/10 ML UNITS SUBCUTANEO PRN (12:00)
[2024-04-22] MEDS ORDERED: DEXTROSE 50 % IN WATER 0.5 G/ML DISP.SYRIN IV PRN (12:00)
[2024-04-22] MEDS ORDERED: APIXABAN 5 MG TABLET PO SCH (12:11)
[2024-04-22] MEDS ORDERED: DIGOXIN 0.125 MG TABLET PO SCH (12:12)
[2024-04-22 15:12] LABS: ob NEGATIVE (NEGATIVE)
[2024-04-22] MEDS ORDERED: METRONIDAZOLE/SODIUM CHLORIDE 500 MG/100 ML PIGGYBACK IV ONE (16:24)
[2024-04-22] MEDS ORDERED: VANCOMYCIN HCL 125 MG/7.5 ML BLIST.PACK PO SCH (18:00)
[2024-04-22 22:02] VITALS: BP 156/92
[2024-04-23 02:21] VITALS: BP 145/77
[2024-04-23 09:06] VITALS: BP 127/76; O2SAT 99
[2024-04-23] MEDS ORDERED: DILTIAZEM HCL 90 MG TABLET PO SCH (10:00)
[2024-04-23] MEDS ORDERED: SUCRALFATE 1 G TABLET PO SCH (10:00)
[2024-04-23] MEDS ORDERED: AMIODARONE HCL 200 MG TABLET PO SCH (10:00)
[2024-04-23] MEDS ORDERED: CEFTRIAXONE SODIUM 2,000 MG VIAL IV SCH (12:00)
[2024-04-23] MEDS ORDERED: FUERA DE FORMULARIO 1 U FF PO SCH (18:00)
[2024-04-23 18:24] VITALS: BP 155/87
[2024-04-24 01:39] VITALS: BP 152/73
[2024-04-24 07:25] LABS: URINE BILIRRUBIN SMALL (NEGATIVE); URINE BLOOD NEGATIVE; URINE GLUCOSE NEGATIVE (NEGATIVE); URINE KETONE 15 (NEGATIVE); URINE LEUKOCYTE NEGATIVE; URINE NITRATE NEGATIVE; URINE PROTEIN NEGATIVE (NEGATIVE); URINE UROBILINOGEN 0.2 E.U./dl
[2024-04-24 07:45] VITALS: BP 157/76; O2SAT 98
[2024-04-24 08:08] LABS: URINE APPEARANCE CLEAR; URINE COLOR YELLOW
[2024-04-24 08:09] LABS: URINE BACTERIA MODERATE; URINE CRYSTALS FEW /HPF; URINE EPITHELIAL CELLS 0-4 /HPF; URINE MUCUS SCANT; URINE RBC 0-3 /HPF; URINE SPERM MANY; URINE WBC 0-2 /hpf
[2024-04-24 17:19] VITALS: BP 154/71
[2024-04-25 02:31] VITALS: BP 121/76; O2SAT 98
[2024-04-25 06:04] LABS: % FREE PSA 24.3 % (.); free psa 0.17 ng/mL; total psa 0.7 ng/mL (0.0-4.0)
[2024-04-25 06:58] LABS: CALCIUM 8.6 mg/dL (8.5-10.1); CREATININE SERUM 0.7 mg/dL (0.70-1.30); GFR 115.43; POTASSIUM 3.17 mEq/L (3.5-5.1)
[2024-04-25] MEDS ORDERED: PANTOPRAZOLE SODIUM 40 MG TABLET.DR PO SCH (09:00)
[2024-04-25] MEDS ORDERED: POTASSIUM CHLORIDE IN WATER 40 MEQ/100 ML PIGGYBAG IV SCH (09:00)
[2024-04-25 09:22] VITALS: BP 150/88
[2024-04-25] MEDS ORDERED: FAMOTIDINE/PF 20 MG/2 ML VIAL ONE (16:43)
[2024-04-25 18:44] VITALS: BP 142/81
[2024-04-26 01:52] VITALS: BP 152/77
[2024-04-26 06:52] LABS: CALCIUM 8.5 mg/dL (8.5-10.1); CREATININE SERUM 0.74 mg/dL (0.70-1.30); GFR 108.26; POTASSIUM 3.79 mEq/L (3.5-5.1)
[2024-04-26 08:48] VITALS: BP 145/75
== END 2024-04-26 14:37 | disposition home or self-care (01) | DRG 392 ==
LOC: ER 23:30 → SEC-K 04-22 11:57 → MEDJ 04-22 11:57
PROVIDERS: General Practice; Student in an Organized Health Care Education/Training Program; ADMIT Internal Medicine; ATTEND Internal Medicine
PROC: BW21ZZZ Computerized Tomography (CT Scan) of Abdomen and Pelvis (ICD-10-PCS; principal; 2024-04-22)
DX: K52.9 Noninfective gastroenteritis and colitis, unspecified (principal); E11.9 Type 2 diabetes mellitus without complications; Z79.4 Long term (current) use of insulin; I48.91 Unspecified atrial fibrillation

== ENCOUNTER → 2024-07-02 09:36 | Outpatient (CLI) | payer OTHER ==
[~2024-07-02 09:36] MED LIST changes: +ABATINEX680 MG PO; +AMIODARONE HCL400 MG PO; +CARAFATE1 GM PO; +CARDIZEM30 MG; +ELIQUIS5 MG PO; +EZALLOR SPRINKL20 MG PO; +LANOXIN125 MCG PO; +PROTONIX40 M1 PO
== END | disposition home or self-care (01) ==
LOC: NUCLEAR 09:00
PROVIDERS: ATTEND Internal Medicine
DX: I10 Essential (primary) hypertension (principal); I48.0 Paroxysmal atrial fibrillation

== ENCOUNTER 2024-07-10 09:04 | Outpatient (CLI) | payer OTHER | END 2024-07-10 09:05 | disposition home or self-care (01) | LOC: TOM 09:04 | PROVIDERS: ATTEND Internal Medicine | DX: R06.00 Dyspnea, unspecified (principal); Z79.899 Other long term (current) drug therapy ==

== ENCOUNTER 2024-10-01 11:12 | Outpatient (CLI) | payer OTHER | END 2024-10-01 11:18 | disposition home or self-care (01) | LOC: TOM 11:12 | PROVIDERS: ATTEND Surgery | DX: K92.2 Gastrointestinal hemorrhage, unspecified (principal); K21.00 Gastro-esophageal reflux disease with esophagitis, without bleeding; Z86.0100 Personal history of colon polyps, unspecified; R19.7 Diarrhea, unspecified; R11.2 Nausea with vomiting, unspecified; K57.30 Diverticulosis of large intestine without perforation or abscess without bleeding ==